=== PATIENT | female | born 1965 | race Caucasian/White ===

== ENCOUNTER 2019-03-24 21:31 | Emergency (ER) | payer MEDICAID, OTHER ==
[~2019-03-24] VITALS: Ht 165.1 cm; Wt 64.0 kg
[~2019-03-24 21:31] MED LIST: NAPR-681; omeprazole
[2019-03-24] MEDS ORDERED: MORPHINE SULFATE 2 MG/ML CPJ (NOT FOR IM USE) IV ONE (22:30)
[2019-03-24] MEDS ORDERED: KETOROLAC 30MG/ML VIAL IV ONE (22:30)
[2019-03-24] MEDS ORDERED: SODIUM CHLORIDE 0.9% 1,000 ML IV ONE (22:30)
[2019-03-24 22:50] LABS: BASOPHILS % 0.4 % (0.0-2.0); HEMATOCRIT. 39.3 % (36.0-48.0); HEMOGLOBIN. 13.9 g/dL (12.0-16.0); LYMPHOCYTES % 20.9 % (20.0-50.0); MEAN CORPUSCULAR HEMOGLOBIN 30.9 pg (28.0-32.0); MEAN CORPUSCULAR VOLUME 87.6 fL (81.0-99.0); MEAN PLATELET VOLUME 7.6 fl (7.4-10.4); MONOCYTES % 8.5 % (2.0-8.0); NEUTROPHILS % 70.2 % (40.0-76.0); PLATELET 282 x1000/uL (130-400); RED BLOOD CELL COUNT 4.49 mill/uL (4.2-5.4); RED CELL DISTRIBUTION WIDTH 13.1 % (11.6-14.6)
[2019-03-24 22:55] LABS: CLARITY URINE CLEAR (CLEAR); COLOR URINE DARK YELLOW (YELLOW); KETONES URINE NEGATIVE (NEGATIVE); LEUKOCYTE ESTERASE URINE 1+ (NEGATIVE); NITRITE URINE NEGATIVE (NEGATIVE); OCCULT BLOOD URINE 1+ (NEGATIVE); PH URINE 5.5 (4.5-8.0); PROTEIN URINE NEGATIVE (NEGATIVE); SPECIFIC GRAVITY URINE 1.024 (1.005-1.030)
[2019-03-24 22:56] LABS: CHLORIDE 101 mEq/L (98-107)
[2019-03-24 22:59] LABS: PROTHROMBIN TIME 10.2 sec (9.6-11.0)
[2019-03-24] MEDS ORDERED: ONDANSETRON HCL 4MG/2ML INJ IV ONE (23:00)
[2019-03-25] MEDS ORDERED: LOPERAMIDE HCL 2MG CAPSULE PO ONE (01:30)
[2019-03-25 02:26] VITALS: BP 98/54
== END 2019-03-25 02:28 | disposition home or self-care (01) ==
LOC: ER 21:31
DX: K52.9 Noninfective gastroenteritis and colitis, unspecified (principal); R74.0 Nonspecific elevation of levels of transaminase and lactic acid dehydrogenase [LDH]; Z90.49 Acquired absence of other specified parts of digestive tract; Z79.899 Other long term (current) drug therapy
CPT/HCPCS: 36415; 80053; 81003; 83690; 85025; 85610; 96361; 96374; 96375; 99283; J1885; J2270; J2405; J7030

== ENCOUNTER 2019-03-25 14:00 | Emergency (ER) | payer MEDICAID ==
[~2019-03-25] VITALS: Ht 165.1 cm; Wt 63.6 kg
[2019-03-25 14:17] VITALS: BP 104/58
[2019-03-25 15:04] LABS: CLARITY URINE CLEAR (CLEAR); COLOR URINE YELLOW (YELLOW); KETONES URINE NEGATIVE (NEGATIVE); PH URINE 5.5 (4.5-8.0); PROTEIN URINE NEGATIVE (NEGATIVE); SPECIFIC GRAVITY URINE 1.016 (1.005-1.030)
[2019-03-25 15:05] LABS: LEUKOCYTE ESTERASE URINE TRACE (NEGATIVE); NITRITE URINE NEGATIVE (NEGATIVE); OCCULT BLOOD URINE TRACE (NEGATIVE)
== END 2019-03-25 15:41 | disposition home or self-care (01) ==
LOC: ER 14:00
DX: N39.0 Urinary tract infection, site not specified (principal); Z90.89 Acquired absence of other organs; Z98.890 Other specified postprocedural states
CPT/HCPCS: 81003; 99283